=== PATIENT | male | born 1985 | race Caucasian/White ===

== ENCOUNTER 2020-02-20 10:57 | Emergency (ER) | payer SELFPAY ==
--- NOTE | 2020-02-20 11:11 | NUR ---
PT BIBA FOR C/O GENERALIZED ABD PAIN AND BILATERAL FLANK PAIN ONSET LAST NIGHT. PT DENIES VOMITING/DIARRHEA, +NAUSEA. PT IS SQUIRMING ON GURNEY, IMMEDIATELY ASKING FOR WATER. PT INFORMED HE MUST REMAIN NPO. PT HAS GOTTEN UP X 2 TO SINK, REMINDED BY RN REMAIN NPO. PT SEEN AND EXAMINED BY EDMD, INFORMED PT IS NON COMPLIANT WITH RN INSTRUCTIONS. BP AND SPO2 MONITORS IN PLACE, AWAITING ORDERS AT THIS TIME.
[2020-02-20] MEDS ORDERED: PLEASE ENTER WEIGHT MC SCH (11:23)
--- NOTE | 2020-02-20 11:23 | NUR ---
FINGERSTICK GLUCOSE OBTAINED, 130. AWAITING FURTHER ORDERS.
[2020-02-20] MEDS ORDERED: ONDANSETRON ODT 4 MG PO ONE (11:30)
[2020-02-20] MEDS ORDERED: ONDANSETRON ODT 4 MG ONE (11:33)
--- NOTE | 2020-02-20 11:36 | NUR ---
PT REFUSED MEDICATION
[2020-02-20 11:47] LABS: MICROSCOPIC NOT IND
[2020-02-20 11:54] LABS: CULTURE INDICATED? NO
[2020-02-20] MEDS ORDERED: KETOROLAC 30 MG/1 ML ONE (11:54)
--- NOTE | 2020-02-20 11:59 | NUR ---
PT MEDICATED PER JAN. PT REMOVED BP CUFF.
[2020-02-20] MEDS ORDERED: KETOROLAC 30 MG/1 ML IM ONE (12:00)
--- NOTE | 2020-02-20 12:41 | NUR ---
THIS RN BACK FROM BREAK, RESUMING CARE FROM BREAK RN VANIA. PT REASSESSED, STATES PAIN RELEIVED S/P TORADOL. PT A&O, RESPS EVEN AND UNLABORED, CALM AND COOPERATIVE. AWAITING PROVIDER RECHECK AND DISPO.
--- NOTE | 2020-02-20 12:42 | NUR ---
JANE PRESLEY AT BEDSIDE.
[2020-02-20 13:18] VITALS: BP 110/73
--- NOTE | 2020-02-20 13:19 | NUR ---
pt given dc instructions, pt amb to dc desk with steady gait, all questions answered.
== END 2020-02-20 13:20 | disposition home or self-care (01) ==
LOC: ED 11:21
DX: R10.31 Right lower quadrant pain (principal); R10.32 Left lower quadrant pain; F17.200 Nicotine dependence, unspecified, uncomplicated
CPT/HCPCS: 81003; 82962; 96372; 99283; J1885